=== PATIENT | female | born 1970 | race Caucasian/White ===

== ENCOUNTER 2020-12-20 14:01 | Outpatient (RCR) | payer BC, SELFPAY | END 2021-04-11 09:52 | disposition home or self-care (01) | LOC: HO.PTWFD 14:01 | PROVIDERS: Visit Provider Orthopaedic Surgery | DX: M25.511 Pain in right shoulder (principal); G89.29 Other chronic pain | CPT/HCPCS: 97110; 97162; 97535 ==